=== PATIENT | female | born 1955 | race Caucasian/White ===

== ENCOUNTER 2024-03-10 11:45 | Outpatient (CLI) | payer MEDICARE, OTHER ==
--- NOTE | 2024-03-10 14:42 | XRAY Report ---
PROCEDURE: Chest 2V INDICATIONS: COUGH TECHNIQUE: 2 views of the chest were acquired. COMPARISON: None. FINDINGS: Surgical changes and devices: Cholecystectomy clips. Lungs and pleura: No pleural effusions or pneumothorax. Lungs are clear. Mediastinum: Mediastinal contours appear normal. Heart size is normal. Bones and chest wall: No suspicious bony lesions. Overlying soft tissues appear unremarkable. IMPRESSION: No acute cardiopulmonary process. Reviewed by: Patricia Cheung MD on 03/10/2024 2:41 PM PDT Approved by: Patricia Cheung MD on 03/10/2024 2:41 PM PDT Station ID: [id number]
== END 2024-03-10 12:00 | disposition home or self-care (01) ==
LOC: DI.N 11:45
PROVIDERS: ATTEND Family Medicine
DX: R05.9 Cough, unspecified (principal)